=== PATIENT | female | born 1955 | race Caucasian/White ===

== ENCOUNTER 2023-02-25 14:22 | Outpatient (REF) | payer MEDICARE, SELFPAY ==
[2023-02-25 15:30] LABS: MANUAL DIFF FLAG NO
[2023-02-25 15:38] LABS: Basophils Absolute Auto 0.1 X10*3/uL (0.0-0.2); Basophils Percent Auto 0.9 % (0-2); Eosinophils Absolute Auto 0.4 X10*3/uL (0.0-0.4); Eosinophils Percent Auto 6.6 % (0-4); Hematocrit 40.4 % (37.0-47.0); Hemoglobin 12.7 g/dl (12.0-16.0); Imm Gran Abs Auto 0.01 X10*3/uL (0.00-0.03); Imm Gran Pct Auto 0.2 % (0.0-0.4); Lymphocytes Absolute Auto 1.4 X10*3/uL (1.2-4.9); Lymphocytes Percent Auto 23.7 % (20-40); Mean Corpuscular HGB Conc 31.4 g/dl (31.0-35.0); Mean Corpuscular Hemoglobin 27.9 pg (27.0-33.0); Mean Corpuscular Volume 88.8 fL (80.0-98.0); Mean Platelet Volume 8.7 fL (9.4-12.3); Monocytes Absolute Auto 0.6 X10*3/uL (0.1-1.2); Monocytes Percent Auto 11.1 % (2-11); Neutrophils Absolute Auto 3.3 x10*3/uL (2.0-8.3); Neutrophils Percent Auto 57.5 % (45-73); Platelet Count 269 X10*3/uL (160-400); Red Blood Count 4.55 X10*6/uL (4.20-5.50); Red Cell Distribution Width 14.7 % (11.0-16.0); White Blood Count 5.8 X10*3/uL (4.8-10.8)
[2023-02-25 16:18] LABS: Alanine Aminotransferase 37 U/L (0-31); Albumin Level 3.9 g/dL (3.5-5.0); Alkaline Phosphatase 148 U/L (39-117); Anion Gap 11 (12-20); Aspartate Amino Transferase 35 U/L (5-31); Bilirubin Total 0.2 mg/dL (0.0-1.0); Blood Urea Nitrogen 23 mg/dL (9-16); Calcium 9.4 mg/dL (8.4-10.2); Carbon Dioxide 30 mmol/L (22-29); Chloride 102 mmol/L (96-108); Estimated Glomerular Filt Rate > 60; Glucose Random 88 mg/dL (60-115); Potassium 4.6 mmol/L (3.3-5.1); Sodium 138 mmol/L (135-145); Total Protein 6.8 g/dL (6.5-8.0)
[2023-02-25 16:31] LABS: Thyroid Stimulating Hormone 0.89 uIU/mL (0.32-4.0)
[2023-03-01 13:29] LABS: Alpha 1 Anti-trypsin 158 mg/dL (83-199); Ceruloplasmin 34 mg/dL (18-53)
[2023-03-02 14:19] LABS: Anti Nuclear Antibody Screen NEGATIVE (NEGATIVE)
[2023-03-02 18:35] LABS: Mitochondrial Antibodies NEGATIVE (NEGATIVE)
[2023-03-02 23:49] LABS: Smooth Muscle Antibody <20 U (<20)
== END 2023-02-25 14:23 | disposition home or self-care (01) ==
LOC: HO.LAB 14:22
PROVIDERS: PCP Physician Assistant Medical; Visit Provider Physician Assistant
DX: R74.01 Elevation of levels of liver transaminase levels (principal); K58.9 Irritable bowel syndrome, unspecified; R74.8 Abnormal levels of other serum enzymes; Z79.899 Other long term (current) drug therapy
CPT/HCPCS: 36415; 80053; 82103; 82390; 84443; 85025; 86015; 86038; 86381; 99202

== ENCOUNTER 2023-02-25 14:22 | Outpatient (AMB) | payer MEDICARE, SELFPAY ==
--- NOTE | 2023-02-25 14:23 | MHC.OFFVIS ---
Intake Vital Signs 02/25/23 14:27 Height 5 ft 4.5 in Weight 174 lb BMI 29.4 BP 124/76 Blood Pressure Location Lt brachial Position Sitting Pulse 100 Intake Visit Reasons: Elevated LFTs Intake Note: Rima presents in the office as a new patient for elevated LFTs. CC: Venlafaxine was once 300mg and they have been lowering it down and she was told it may have something to do with her liver enzymes. Allergies No Known Allergies Allergy (Verified 02/25/23 14:28) Medication List - Last Reconciled 02/25/23 by Marisabel Harper PA-C antiarthritic combination no.2 (glucosamine-chondroitin) mg PO ascorbate calcium (vitamin C) 1 g PO Q6H cholecalciferol (vitamin D3) 10 mcg PO DAILY ferrous sulfate (Feosol) 325 mg PO DAILY lamotrigine 75 mg PO DAILY levothyroxine 15 mcg PO DAILY mecobalamin (vitamin B12) 1,000 mcg PO DAILY multivit with min-folic acid 120 mcg (Centrum Adult 50 Plus Fresh-Fruity) 1 tab PO DAILY quetiapine (Seroquel) 25 mg PO BEDTIME venlafaxine ER 150 mg PO BEDTIME HPI HPI Comments History of Present Illness Details 67-year-old female referred with elevated liver enzymes- no labs for review-patient somewhat frustrated Reviewed PCP referral note-patient was sent for ultrasound no results available for review She says she feels well- other than constipation-but has changed diet and has improved- She has lost about 80 lb intentionally by following golo diet plan-she has done very well Called her sister by phone-she reviewed portal as follows 12/01/22 AST/ ALT-47/56 T.bili 0.2 alb-3.9 alk phos-130 Tprotein 5.8 HCV-neg HepBsag-neg core ne AB neg Hep A U/S-01/25/23- no report-pt says its normal Reviewed labs that are available as above, as well as ultrasound may likely be NAFLD- Reassured Last colonoscopy-5 years ago inadequate prep-she will be due for repeat She no nausea, vomiting, hematemesis, hematochezia, abdominal pain, fever or chills PFSH Surgical History Hx of colonoscopy Hx of joint replacement Hx of tubal ligation Hx of cholecystectomy Hx of section Hx of appendectomy Hx of mammogram History of arthroplasty of right knee Social History (Updated 03/01/23 @ 12:01 by Marisabel Harper PA-C) Household Members: Family Household 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 Alcohol intake: current Alcohol intake frequency: does not drink Patient Tobacco Use Status: Never used Tobacco Current occupational status: retired Review of Systems Const All systems reviewed & are unremarkable except as noted in HPI and below Card Denies chest pain GI Denies abdominal pain, Denies hematochezia, Denies nausea and Denies vomiting Physical Exam Vital Signs: Last Vital Signs Pulse 100 02/25/23 14:27 BP 124/76 02/25/23 14:27 BMI result Body Mass Index 29.4 Const General: cooperative, healthy appearing and comfortable Orientation/consciousness: patient oriented x3 Limitations: no limitations Eyes Sclerae: sclerae normal Resp Effort & Inspection: normal respiratory effort and able to speak in complete sentences Auscultation: clear to auscultation bilaterally Cardio Rate: regular rate and tachycardic Rhythm: regular rhythm Heart sounds: S1 normal heart sound present and S2 normal heart sound present GI Palpation (GI): Soft to palpation and nontender Auscultation: normal bowel sounds Skin General skin exam: no rashes or lesions noted Neuro General: patient oriented x3 Extrem General: Yes full ROM Psych Appearance: grossly normal and well kempt Mental Status: mental status grossly normal Speech and movement: Clear speech present Affect: Anxious affect present Attitude: cooperative Thought process: Normal thought process present Thought content: Normal thought content present Insight: Good insight present (Psych) Judgement: Good judgement present (Psych) Assessment & Plan Assessment & Plan (1) Elevated liver enzymes: Comment: Very pleasant, somewhat frustrated, understandably she had difficulty getting labs for review- Given history significant weight loss may likely be NAFLD Reviewed lab mild elevation AST ALT Will update lap liver work up Hold off on ultrasound the we have no report-she is a good historian 20 minutes spent pt trying to get records from her portal-PCP Code(s): R74.8 - Abnormal levels of other serum enzymes Plan: Reassured Update lab Will follow-up by phone (2) Chronic constipation: Comment: Manages by diet much improved Code(s): K59.09 - Other constipation Plan: Maintain high-fiber diet Check TSH Reinforced importance of follow-up with colonoscopy Plan Labs Reassurance A contact [facility] for [facility] too distant Orders: Orders Alpha 1 Anti-trypsin 02/25/23 R74.01 - Elevation of levels of liver transaminase levels Mitochondrial Antibody 02/25/23 R74.01 - Elevation of levels of liver transaminase levels Complete Blood Count Auto Diff 02/25/23 R74.8 - Abnormal levels of other serum enzymes Comprehensive Met. Panel 02/25/23 K58.9 - Irritable bowel syndrome without diarrhea Thyroid Stimulating Hormone 02/25/23 R74.8 - Abnormal levels of other serum enzymes Ceruloplasmin 02/25/23 R74.8 - Abnormal levels of other serum enzymes MAY Reflex Titer and Pattern 02/25/23 R74.01 - Elevation of levels of liver transaminase levels Smooth Muscle Antibody 02/25/23 R74.8 - Abnormal levels of other serum enzymes Patient Instructions: Reviewed labs that are available, Reassured-minimal elevation liver enzymes, may likely be NAFLD Update labs Maintain high-fiber diet She will establish care for colonoscopy closer to her home Will follow-up by phone-she lives is considerable distance Coding Level of Care Code New Pt Level 4 ([id number]) Diagnoses Elevated liver enzymes R74.8 Chronic constipation K59.09 Time Spent (min) 60
[2023-02-25 14:27] VITALS: BP 124/76; PULSE 100; BMI 29.4
== END 2023-02-25 15:36 | disposition home or self-care (01) ==
PROVIDERS: PCP Physician Assistant Medical; Visit Provider Physician Assistant
DX: R74.8 Abnormal levels of other serum enzymes (principal); K59.09 Other constipation
CPT/HCPCS: 99204